=== PATIENT | female | born 1955 | race Caucasian/White ===

== ENCOUNTER 2023-01-26 19:49 | Observation (INO) | payer OTHER, MEDICARE ==
[~2023-01-26 19:49] MED LIST: Iopamidol 300 61% 100 ML VIAL FS ONE
[2023-01-26] MEDS ORDERED: Ondansetron PF 4 MG/2 ML Vial ONE (20:09)
[2023-01-26] MEDS ORDERED: Morphine 2 MG/ML VIAL ONE (20:09)
[2023-01-26 20:23] LABS: #Basophils 0.2 10x3/uL (0.0-0.2); #Eosinphils 0.2 10x3/uL (0.0-0.5); #Monocytes 0.5 10x3/uL (0.0-1.1); #Neutrophils 3.7 10x3/uL (1.5-8.4); %Basophils 2.2 % (0.0-2.0); %Eosinophils 3.2 % (0.0-6.0); %Lymphocytes 36.8 % (18.0-47.0); %Monocytes 6.6 % (0.0-10.0); %Neutrophils 50.3 % (40.0-75.0); Hematocrit 42.9 % (34.9-44.5); Hemoglobin 14.3 g/dL (12.0-15.5); Mean Corpuscular HGB CONC 33.3 g/dL (32.0-36.0); Mean Corpuscular Hemoglobin 33.3 pg (27.0-33.0); Mean Platelet Volume 11.2 fl (7.4-10.4); Platelet Count 251 10x3/uL (150-450); RBC Distribution Width 12.5 % (11.5-14.5); Red Blood Cell (RBC) Count 4.29 10x6/uL (3.90-5.03); White Blood Cell (WBC) Count 7.4 10x3/uL (3.5-10.5)
[2023-01-26 20:27] LABS: INR-International Normal Ratio 0.9; PTT 22.4 sec (22.0-33.0); Prothrombin Time 10.2 sec (9.5-12.1)
[2023-01-26 20:31] LABS: ALT (SGPT) 27 U/L (8-55); AST (SGOT) 36 U/L (5-34); Albumin 4.4 g/dL (3.4-4.8); Alkaline Phosphatase 61 U/L (40-110); Anion Gap 17 mmol/L (10-20); BUN (Urea Nitrogen) 12 mg/dL (9.8-20.1); Bilirubin, Total 0.3 mg/dL (0.2-1.2); Calc. Creatinine Clearance 0 mL/min (70-130); Calcium 9.2 mg/dL (7.8-10.44); Carbon Dioxide 19 mmol/L (23-31); Chloride 109 mmol/L (98-107); Estimated GFR 52; Globulin 2.8 g/dL (2.4-3.5); Glucose 127 mg/dL (80-115); Potassium 3.7 mmol/L (3.5-5.1); Protein, Total 7.2 g/dL (5.8-8.1); Sodium 141 mmol/L (136-145)
[2023-01-26] MEDS ORDERED: traMADol HCl 50 MG TAB PO PRN (22:04)
[2023-01-26] MEDS ORDERED: Cyclobenzaprine 10 MG TAB PO PRN (22:38)
[2023-01-27 00:28] VITALS: BMI 27.5
[2023-01-27] MEDS ORDERED: Acetaminophen 500 MG TAB PO SCH (00:45)
[2023-01-27] MEDS ORDERED: traMADol HCl 50 MG TAB PO SCH (00:45)
[2023-01-27 04:28] LABS: #Basophils 0.1 10x3/uL (0.0-0.2); #Monocytes 0.6 10x3/uL (0.0-1.1); #Neutrophils 5.5 10x3/uL (1.5-8.4); %Basophils 1.4 % (0.0-2.0); %Eosinophils 0.3 % (0.0-6.0); %Lymphocytes 14.7 % (18.0-47.0); %Monocytes 7.6 % (0.0-10.0); %Neutrophils 75.7 % (40.0-75.0); Hemoglobin 10.5 g/dL (12.0-15.5); Mean Corpuscular HGB CONC 32.8 g/dL (32.0-36.0); Mean Corpuscular Volume 100.6 fl (81.6-98.3); Mean Platelet Volume 11.2 fl (7.4-10.4); Platelet Count 217 10x3/uL (150-450); RBC Distribution Width 12.8 % (11.5-14.5); Red Blood Cell (RBC) Count 3.18 10x6/uL (3.90-5.03); White Blood Cell (WBC) Count 7.2 10x3/uL (3.5-10.5)
[2023-01-27] MEDS: traMADol HCl 50 MG TAB PO SCH ×2 (06:26→11:26)
[2023-01-27] MEDS: Acetaminophen 500 MG TAB PO SCH ×2 (06:27→11:28)
[2023-01-27] MEDS ORDERED: Amlodipine 5 MG TAB PO SCH (09:00)
[2023-01-27] MEDS ORDERED: Meloxicam 7.5 MG TAB PO SCH (09:00)
[2023-01-27] MEDS: Gabapentin 300 MG CAP PO SCH ×2 (11:28→15:43)
[2023-01-27 12:40] LABS: #Basophils 0.1 10x3/uL (0.0-0.2); #Eosinphils 0.1 10x3/uL (0.0-0.5); #Monocytes 0.5 10x3/uL (0.0-1.1); #Neutrophils 4.5 10x3/uL (1.5-8.4); %Basophils 1.6 % (0.0-2.0); %Eosinophils 1.3 % (0.0-6.0); %Lymphocytes 22.7 % (18.0-47.0); %Monocytes 7.3 % (0.0-10.0); %Neutrophils 66.8 % (40.0-75.0); Hematocrit 33.3 % (34.9-44.5); Hemoglobin 10.8 g/dL (12.0-15.5); Mean Corpuscular HGB CONC 32.4 g/dL (32.0-36.0); Mean Corpuscular Hemoglobin 32.7 pg (27.0-33.0); Mean Corpuscular Volume 100.9 fl (81.6-98.3); Platelet Count 217 10x3/uL (150-450); RBC Distribution Width 12.6 % (11.5-14.5); White Blood Cell (WBC) Count 6.7 10x3/uL (3.5-10.5)
[2023-01-27 13:40] VITALS: TEMP 98.4
[2023-01-27 18:02] VITALS: BP 172/81
[2023-01-27] MEDS ORDERED: Atorvastatin Calcium 10 MG TAB PO SCH (21:00)
== END 2023-01-27 18:20 | disposition home or self-care (01) ==
LOC: CSHERS 19:49 → CSHTELE 01-27 00:18 → INTOOBSV 01-27 00:18
PROVIDERS: ADMIT Student in an Organized Health Care Education/Training Program; ATTEND Student in an Organized Health Care Education/Training Program
DX: S30.0XXA Contusion of lower back and pelvis, initial encounter (principal); S22.41XA Multiple fractures of ribs, right side, initial encounter for closed fracture; S27.321A Contusion of lung, unilateral, initial encounter; K21.9 Gastro-esophageal reflux disease without esophagitis; I10 Essential (primary) hypertension; E78.5 Hyperlipidemia, unspecified; M19.90 Unspecified osteoarthritis, unspecified site; Z98.890 Other specified postprocedural states; Z79.899 Other long term (current) drug therapy; V80.010A Animal-rider injured by fall from or being thrown from horse in noncollision accident, initial encounter
CPT/HCPCS: 70450; 71045; 71260; 72125; 73502; 74177; 80053; 85025 ×3; 85610; 85730; 93005; G0378 ×2; 36415; J2272; J2405; Q9967